=== PATIENT | female | born 1980 | race Caucasian/White ===

== ENCOUNTER → 2018-04-17 | Outpatient (CLI) | payer OTHER | LOC: FIMAGING 08:11 | PROVIDERS: ATTEND Advanced Practice Midwife | DX: O09.522 Supervision of elderly multigravida, second trimester (principal); Z3A.22 22 weeks gestation of pregnancy ==

== ENCOUNTER → 2018-06-13 | Outpatient (CLI) | payer OTHER | LOC: FIMAGING 09:07 | PROVIDERS: ATTEND Advanced Practice Midwife | DX: O09.523 Supervision of elderly multigravida, third trimester (principal); Z3A.30 30 weeks gestation of pregnancy ==

== ENCOUNTER 2018-08-24 07:25 | Inpatient (IN) | payer OTHER ==
[2018-08-24] MEDS ORDERED: LIDOCAINE 1% 300 MG/30 ML SDV ONE (08:08)
[2018-08-24] MEDS ORDERED: OLIVE OIL 118 ML BTL ONE (08:08)
[2018-08-24] MEDS ORDERED: AMMONIA AROMATIC 1 EACH AMP IH ONE (08:08)
[2018-08-24] MEDS ORDERED: MISOPROSTOL 200 MCG TAB ONE (08:09)
[2018-08-24] MEDS ORDERED: TERBUTALINE SULFATE 1 MG/ML VIAL ONE (08:09)
[2018-08-24] MEDS ORDERED: OXYTOCIN 10 UNIT/ML VIAL ONE (08:09)
[2018-08-24] MEDS ORDERED: MISOPROSTOL 200 MCG TAB PR PRN (08:25)
[2018-08-24] MEDS ORDERED: TERBUTALINE SULFATE 1 MG/ML VIAL IV PRN (08:25)
[2018-08-24] MEDS ORDERED: EPSOM SALT 454 GM TP PRN (08:25)
[2018-08-24] MEDS ORDERED: LIDOCAINE 1% 300 MG/30 ML SDV SC PRN (08:25)
[2018-08-24] MEDS ORDERED: LR 1,000 ML IV PRN (08:25)
[2018-08-24] MEDS ORDERED: OXYTOCIN/RINGERS LACTATE 1,000 ML IV PRN (08:25)
[2018-08-24] MEDS ORDERED: IBUPROFEN 600 MG TAB PO PRN (08:25)
[2018-08-24] MEDS ORDERED: OLIVE OIL 118 ML BTL MISC PRN (08:25)
--- NOTE | 2018-08-24 08:25 | PDGENHP ---
History and Physical History and Physical: Care: [facility] HPI: Patient is a [id number] with IUP@ 41-1 weeks that presents to L&D with complaints of contractions since 299. She denies any LOF until arrival to hospital. She denies any VB. She reports +FM. She is practicing hypnobirthing. MEISalas is @ BS and supportive. EDC: 08/17/18 which is based on LMP which is known and consistent with Ultrasound at 8 weeks. Her is complicated by: [email or web address]@18wks, AMA, anemia Review of Systems: Constitutional: Denies any fever, chills, or fatigue HEENT: denies any visual changes, difficulty swallowing, hearing loss Cardiovascular: Denies any chest pain, palpitations, leg swelling Respiratory: denies any cough, wheezing, or shortness of breathe GI: Denies any nausea, vomiting, diarrhea, constipation : denies any dysuria, urgency, frequency, vaginal bleeding Musculoskeletal: denies any muscle or bone pain Skin: denies any rashes Neuro: denies any headache, seizures, lightheadedness, dizziness, or loss of consciousness Psychiatric: denies any depression, anxiety, or SI/HI thoughts HISTORY: Previous OB history: x 1, 8#5, SAB Past medical history: noncontributory Past surgical history: elbow, knee (ACL) surgery Social: Denies any alcohol, tobacco, or drug use. Family history: Not relevant Medications: PNV, iron Allergies (list reaction): NKDA LABS: Rh:A+ ABS: Neg Rubella: Immune HbsAg: NR HIV: NR VDRL: NR 1hr: 109 GC: Neg Chlamydia: Neg Pap: Normal GBS: negative PHYSICAL EXAM: Constitutional: WN, A&Ox3 HEENT: normocephalic atraumatic, supple Skin: Warm, dry, intact Heart: RRR, no murmur Chest: CTA-B Abdomen: Soft, nontender, gravid SVE:deferred Extremities: no edema, negative homans sign Neuro: grossly normal Psych: normal affect assessment: FHT baseline 120 +accels, no decels, moderate variability Contractions: toco q 2-3 Assessment: 1) [id number] with IUP@41-1wks 2) active labor 3) GBS negative 4) Cat 1 FHR tracing Plan: 1) Admit to L&D 2) expectant management 3) anticipate Today's visit was approximately 30 min, of which >50% of visit 20 min, was spent face to face with pt on direct counseling/coordination of care.
--- NOTE | 2018-08-24 10:27 | OBDEL ---
Info Type: Vaginal Presentation at Delivery: Vertex L&D Analgesia/Anesthesia Type: None GBS+: No Indications for Delivery: Spontaneous Labor, SROM Vaginal Delivery - Delivery Provider Delivery Physician/CNM: Carmenza Owens - Labor and Delivery Onset of Contractions Date: 08/24/18 Onset of Contractions Time: 03:00 Onset of Contractions Type: Spontaneous Rupture of Membranes Date: 08/24/18 Rupture of Membranes Time: 08:00 Rupture of Membranes Type: Spontaneous Amniotic Fluid Color: Clear Dilation Complete Date: 08/24/18 Dilation Complete Time: 09:50 Placenta Delivery Date: 08/24/18 Placenta Delivery Time: 10:04 Total Hours of Labor: 7 Laceration: 1st Degree Repair: 3-0, Vicryl Vaginal Sponge Count Correct: Yes Vaginal Needle Count Correct: Yes Vaginal Sweep Performed: Yes EBL: 200 Delivery Comment: delivered on hands/knees dad helped catch Data MARYLOU: 08/17/18 Gestational Age: 41 week(s) and 0 day(s) Jiang Delivery Date: 08/24/18 Delivery Time: 09:51 Sex of Infant: Male Score (1 Min): 8 Score (5 Min): 9 ICD10 Worksheet Patient Problems: Problems Problem Status Onset First degree perineal laceration Acute (spontaneous vaginal delivery) Acute - ICD10 Problem Qualifiers (1) (spontaneous vaginal delivery) (2) First degree perineal laceration
[2018-08-24] MEDS ORDERED: SIMETHICONE 80 MG TAB CHEW PO PRN (16:55)
[2018-08-24] MEDS ORDERED: oxyCODONE IR 5 MG TAB PO PRN (16:55)
[2018-08-24] MEDS ORDERED: HYDROCORTISONE 0.5% CREAM TP PRN (16:55)
[2018-08-24] MEDS ORDERED: DOCUSATE SODIUM 100 MG CAP PO PRN (16:55)
[2018-08-24] MEDS: ACETAMINOPHEN 325 MG TAB PO SCH ×2 (17:23→23:27)
[2018-08-24] MEDS: IBUPROFEN 600 MG TAB PO SCH ×2 (17:23→23:27)
[2018-08-25] MEDS: ACETAMINOPHEN 325 MG TAB PO SCH ×2 (05:16→11:20)
[2018-08-25] MEDS: IBUPROFEN 600 MG TAB PO SCH ×2 (05:16→11:21)
--- NOTE | 2018-08-25 10:56 | OBGCSDC ---
General Delivery Information - General Info : 3 Para: 2 Abortions: 1 Type: Vaginal L&D Analgesia/Anesthesia Type: None Admission Date: 08/24/18 - Hospital Course : 08/25/18 10:54 S) Pt doing well, reports min pain and bleeding. she is ambulating and voiding without difficulty. She is . She desires discharge home today. O) VSS, afebrile constitutional: WNWF, A&Ox3 HEENT: normocephalic, atraumatic, supple Heart: RRR, No murmur Chest: CTA-B Abdomen: Soft, nontender Uterus: Firm at U-2 Lochia: Minimal rubra Perineum: Intact, healing well Extremities: Trace edema, and negative Bella's sign Neuro: Grossly normal A) 38 year-old S/P PPD#2 P) Discharge home today Continue Pelvic rest x6wks Discussed danger signs (infection, preeclampsia, depression, heavy bleeding, etc) RTO in 2,4 and 6 weeks Vaginal - Delivery Provider Delivery Physician/CNM: Carmenza Owens - Diagnosis Labor: Spontaneous Rupture of Membranes Type: Spontaneous Amniotic Fluid Color: Clear Laceration: 1st Degree Repair: 3-0, Vicryl - Delivery EBL: 200 Data MARYLOU: 08/17/18 Gestational Age: 41 week(s) and 1 day(s) Jiang Delivery Date: 08/24/18 Delivery Time: 09:51 Sex of : Male Weight (gm): 3144 kg Score (1 Min): 8 Score (5 Min): 9 Discharge Information - Discharge Information Prescriptions: Docusate Sodium [Colace 100 MG (*)] 100 mg PO BID PRN #30 cap PRN Reason: Constipation Ibuprofen [Motrin (*)] 600 mg PO Q6H #30 tab Condition: Good Instruction/Follow Up: Two Weeks, Four Weeks, Six Weeks
[2018-08-25 13:24] VITALS: BP 89/61
== END 2018-08-25 14:24 | disposition home or self-care (01) | DRG 807 ==
LOC: FLD 07:25 → FOB 13:16
PROVIDERS: ADMIT Advanced Practice Midwife; ATTEND Advanced Practice Midwife
PROC: 10E0XZZ Delivery of Products of Conception, External Approach (ICD-10-PCS; principal; 2018-08-24)
PROC: 0HQ9XZZ Repair Perineum Skin, External Approach (ICD-10-PCS; principal; 2018-08-24)
DX: O70.0 First degree perineal laceration during delivery (principal); Z37.0 Single live birth; Z3A.41 41 weeks gestation of pregnancy
CPT/HCPCS: J2590; J3105